=== PATIENT | female | born 1975 | race Caucasian/White ===

== ENCOUNTER → 2018-11-05 | Outpatient (CLI) | payer BC ==
--- NOTE | 2018-11-05 16:57 | KCIC ---
Chest, 2 views, 11/05/2018: HISTORY: Cough The heart size and pulmonary vascularity are normal. There is minimal discoid atelectasis or linear scarring the right upper lobe. No pulmonary consolidation is seen. There is no evidence of pleural fluid. IMPRESSION: Minimal right upper lobe discoid atelectasis or scarring. Electronically signed by: Bear Mcnair MD (11/05/2018 4:54 PM) [facility]
== END | disposition home or self-care (01) ==
LOC: KCIC 15:34
PROVIDERS: ATTEND Nurse Practitioner
DX: R05 Cough (principal)
CPT/HCPCS: 71046